=== PATIENT | female | born 1970 | race African-American/Black ===

== ENCOUNTER 2018-05-03 12:19 | Emergency (ER) | payer SELFPAY ==
[~2018-05-03] VITALS: Ht 167.6 cm; Wt 74.4 kg
[2018-05-03 12:57] LABS: BILIRUBIN,URINE SMALL (NEG); CLARITY,URINE CLEAR; COLOR,URINE ORANGE; NITRITE,URINE POSITIVE (NEG); PH,URINE 6.5; PROTEIN,URINE 30 mg/dL (NEG-TRACE); UROBILINOGEN,URINE >=8.0 mg/dL (0.2 mg/dL)
[2018-05-03 13:02] LABS: SQUAMOUS EPITHELIAL CELL,UR FEW /LPF
[2018-05-03 13:03] LABS: BACTERIA,URINE MANY /HPF (0-FEW); RBC,URINE 0 /HPF (0-2); WBC,URINE 20-40 /HPF (0-4)
[2018-05-03 13:35] VITALS: BP 144/67
[2018-05-03] MEDS ORDERED: ACETAMINOPHEN 500 MG TABLET PO ONE (13:45)
[2018-05-03] MEDS ORDERED: BENZONATATE 100 MG CAPSULE. PO ONE (13:45)
--- NOTE | 2018-05-03 14:24 | RAD ---
Chest, 2 views, 05/03/2018: HISTORY: Cough, trouble breathing The heart size and pulmonary vascularity are normal. No pulmonary infiltrate is seen. There is no evidence of pleural fluid. IMPRESSION: No acute cardiopulmonary abnormality is detected. Electronically signed by: Michael Luu MD (05/03/2018 2:20 PM) [facility]
[2018-05-03 14:27] LABS: INFLUENZA A PATIENT NEGATIVE (NEGATIVE); INFLUENZA B PATIENT NEGATIVE (NEGATIVE)
[2018-05-03] MEDS ORDERED: CEPH500T PO (14:51)
--- NOTE | 2018-05-03 14:51 | PHYS DOC ---
Past Medical History Past Medical History: No Pertinent History Past Surgical History: No Surgical History Alcohol Use: None Drug Use: None Adult General Chief Complaint Chief Complaint: FLU SYMPTOM HPI HPI Patient is a 48 year old female presenting today complaining of subjective fevers, intermittent low back pain, cough and nasal congestion for 7 days. Patient states she vomited yesterday as well as today. Denies any abdominal pain. Denies any chest pain or shortness of breath. She is also stating she's had a headache intermittently for 2 days. Describes the headache as throbbing and mild. She states the headache is worse after coughing spells. Denies any neck pain. Review of Systems Review of Systems Constitutional: Denies fever or chills [] Eyes: Denies change in visual acuity, redness, or eye pain [] HENT: Reports nasal congestion, denies sore throat [] Respiratory: Reports cough, denies shortness of breath [] Cardiovascular: No additional information not addressed in HPI [] GI: Reports nausea and vomiting. Denies abdominal pain, bloody stools or diarrhea [] : Denies dysuria or hematuria [] Musculoskeletal: Reports low back pain, denies joint pain [] Integument: Denies rash or skin lesions [] Neurologic: Denies headache, focal weakness or sensory changes [] All other systems were reviewed and found to be within normal limits, except as documented in this note. Current Medications Current Medications Current Medications Medications (Trade) Dose Ordered Sig/[facility] Start Time Stop Time Status Last Admin Dose Admin Acetaminophen (Tylenol) 1,000 mg 1X ONCE 05/03/18 13:45 05/03/18 13:46 DC 05/03/18 13:49 1,000 MG Benzonatate (Tessalon Perle) 100 mg 1X ONCE 05/03/18 13:45 05/03/18 13:46 DC 05/03/18 13:49 100 MG Allergies Allergies Allergies Coded Allergies Type Severity Reaction Last Updated Verified No Known Drug Allergies 05/03/18 No Physical Exam Physical Exam Constitutional: Well developed, well nourished, no acute distress, non-toxic appearance. [] HENT: Normocephalic, atraumatic, bilateral external ears normal, oropharynx moist, no oral exudates, nose normal. [] Eyes: PERRLA, EOMI, conjunctiva normal, no discharge. [] Neck: Normal range of motion, no tenderness, supple, no stridor. Negative meningeal signs Cardiovascular:Heart rate regular rhythm, no murmur [] Lungs & Thorax: Bilateral breath sounds clear to auscultation [] Abdomen: Bowel sounds normal, soft, no tenderness, no masses, no pulsatile masses. [] Skin: Warm, dry, no erythema, no rash. [] Back: No tenderness, no CVA tenderness. [] Extremities: No tenderness, no cyanosis, no clubbing, ROM intact, no edema. [] Neurologic: Alert and oriented X 3, normal motor function, normal sensory function, no focal deficits noted. [] Psychologic: Affect normal, judgement normal, mood normal. [] Current Patient Data Vital Signs Vital Signs Date Time Temp Pulse Resp B/P (MAP) Pulse Ox O2 Delivery O2 Flow Rate FiO2 05/03/18 13:35 100.1 95 20 144/67 (92) 98 Room Air 100.1 Lab Values Laboratory Tests Test 05/03/18 12:30 05/03/18 13:40 05/03/18 13:45 Urine Collection Type Unknown Urine Color Thurston Urine Clarity Clear Urine pH 6.5 Urine Specific Walsh 1.020 Urine Protein 30 mg/dL (NEG-TRACE) Urine Glucose (UA) Negative mg/dL (NEG) Urine Ketones (Stick) >=80 mg/dL (NEG) Urine Blood Negative (NEG) Urine Nitrite Positive (NEG) Urine Bilirubin Small (NEG) Urine Urobilinogen Dipstick >=8.0 mg/dL (0.2 mg/dL) Urine Leukocyte Esterase Small (NEG) Urine RBC 0 /HPF (0-2) Urine WBC 20-40 /HPF (0-4) Urine Squamous Epithelial Cells Few /LPF Urine Bacteria Many /HPF (0-FEW) Urine Mucus Marked /LPF Influenza Type A Antigen Negative (NEGATIVE) Influenza Type B Antigen Negative (NEGATIVE) Group A Streptococcus Rapid Negative (NEGATIVE) EKG EKG [] Radiology/Procedures Radiology/Procedures [] Course & Med Decision Making Course & Med Decision Making Pertinent Labs and Imaging studies reviewed. (See chart for details) This is a 48-year-old female patient presenting to the ED today with cough, nasal congestion, subjective fevers, low back pain and a headache. Symptoms on and off for 7 days. Also vomited yesterday and today. Chest x-ray interpreted by radiologist as negative for any acute findings, negative influenza A or B. Negative rapid strep. Urine analysis is noted for UTI. Vitals on arrival to the ED temperature was 100.1, respiration 20 room air, O2 sats 98% on room air, blood pressure 144/67, heart rate 95. Patient is in no distress. He was given 1 g of Tylenol. Be discharged with cephalexin. Instructed to rest and push fluids. Follow-up with primary care doctor in one week. Dragon Disclaimer Dragon Disclaimer This electronic medical record was generated, in whole or in part, using a voice recognition dictation system. Departure Departure Impression: Primary Impression: Upper respiratory infection Additional Impressions: Cough Fever Urinary tract infection Disposition: HOME, SELF-CARE Condition: STABLE Referrals: NO PCP (PCP) follow up with your doctor next week Patient Instructions: Cough, Adult, [id number], Fever, Adult, [id number], Urinary Tract Infection Additional Instructions: You were evaluated in the emergency room on noted to have a cough, upper respiratory infection fever and a headache and urinary tract infection, ensure you complete your antibiotics. Rest, push fluids, maintain good hand hygiene. Follow-up with your doctor in 1-2 weeks. Scripts Cephalexin (CEPHALEXIN) 500 Mg Tablet 1 TAB PO BID, #14 TAB Prov: AGUEDA PINON APRN 05/03/18 Problem Qualifiers Primary Impression: Upper respiratory infection URI type: unspecified URI Qualified Codes: J06.9 - Acute upper respiratory infection, unspecified Additional Impressions: Fever Fever type: unspecified Qualified Codes: R50.9 - Fever, unspecified Urinary tract infection Urinary tract infection type: site unspecified Hematuria presence: without hematuria Qualified Codes: N39.0 - Urinary tract infection, site not specified AGUEDA PINON APRN May 03, 2018 14:51
== END 2018-05-03 15:00 | disposition home or self-care (01) ==
LOC: ER 12:19
DX: J06.9 Acute upper respiratory infection, unspecified (principal); N39.0 Urinary tract infection, site not specified; M54.5 Low back pain; R51 Headache; R11.2 Nausea with vomiting, unspecified
CPT/HCPCS: 71046; 81001; 87070; 87804; 87880; 99284-25

== ENCOUNTER 2020-11-27 07:30 | Emergency (ER) | payer MEDICAID ==
[~2020-11-27] VITALS: Ht 170.2 cm; Wt 75.0 kg
[~2020-11-27 07:30] MED LIST: CEPH500T PO
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
--- NOTE | 2020-11-27 07:57 | RAD ---
AP chest. HISTORY: Chest pain AP view was taken of the chest. There is no pneumothorax or pleural effusion. There is mild atelectas is or infiltrate in the right lung base. No other infiltrates are noted. Heart is normal in size. IMPRESSION: 1. Right mild right basilar atelectasis or infiltrate. Electronically signed by: Jose England MD (11/27/2020 7:55 AM) [id number]
[2020-11-27 08:20] LABS: BASO % 1 % (0-3); EOS % 0 % (0-3); HEMATOCRIT 41.1 % (36.0-47.0); HEMOGLOBIN 13.8 g/dL (12.0-15.5); LYMPH # 1.4 x10^3/uL (1.0-4.8); LYMPH % 25 % (24-48); MEAN CORPUSCULAR HEMOGLOBIN 31 pg (25-35); MEAN CORPUSCULAR HGB CONC 34 g/dL (31-37); MEAN CORPUSCULAR VOLUME 92 fL (79-100); MONO # 0.3 x10^3/uL (0.0-1.1); MONO % 6 % (0-9); NEUT # 4.1 x10^3/uL (1.8-7.7); NEUT % 69 % (31-73); PLATELET COUNT 279 x10^3/uL (140-400); RED BLOOD COUNT 4.47 x10^6/uL (3.50-5.40); WHITE BLOOD COUNT 5.9 x10^3/uL (4.0-11.0)
[2020-11-27] MEDS ORDERED: diazePAM 5 MG TABLET PO ONE (08:30)
[2020-11-27 09:19] LABS: CALCIUM 9.8 mg/dL (8.5-10.1); GFR 70.5; POTASSIUM 3.8 mmol/L (3.5-5.1)
[2020-11-27 09:24] LABS: ALBUMIN 4.5 g/dL (3.4-5.0); ALBUMIN/GLOBULIN RATIO 1.3 (1.0-1.7); TOTAL BILIRUBIN 0.5 mg/dL (0.2-1.0)
--- NOTE | 2020-11-27 10:30 | EKG ---
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
[2020-11-27 11:00] VITALS: BP 140/86
[2020-11-27 11:09] LABS: BARBITURATES NEG (NEG); BENZODIAZEPINES POS (NEG); CANNABINOIDS POS (NEG); COCAINE NEG (NEG); METHADONE NEG (NEG); OPIATES NEG (NEG); PHENCYCLIDINE NEG (NEG)
[2020-11-27 11:11] LABS: AMPHETAMINE/METHAMPHETAMINE NEG (NEG)
[2020-11-27] MEDS ORDERED: AZIT250T PO (11:16)
== END 2020-11-27 11:34 | disposition home or self-care (01) ==
LOC: ER 07:30
DX: R07.89 Other chest pain (principal)
CPT/HCPCS: 36415; 71045; 80053; 80307; 83880; 84484; 85025; 93005; 99285-25